=== PATIENT | female | born 1975 | race American Indian/Alaskan Native ===

== ENCOUNTER 2020-08-15 15:53 | Emergency (ER) | payer BC ==
--- NOTE | 2020-08-15 19:19 | Event Note ---
ED Screening Note Date of service: 08/15/20 Time: 19:17 ED Screening Note: 45-year-old female with a past medical history of hypertension and anemia presents to the ER today with complaints of pain in her left neck, left upper back, left shoulder that radiates into her left chest intermittently and down into the left forearm and hands. She reports numbness from her left forearm down into her middle and index finger. She states her symptoms started about a week ago. She went to urgent care and she was prescribed 600 mg Motrin without relief. 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 This initial assessment/diagnostic orders/clinical plan/treatment(s) is/are subject to change based on patients health status, clinical progression and re- assessment by fellow clinical providers in the ED. Further treatment and workup at subsequent clinical providers discretion. Patient/guardian urged not to elope from the ED as their condition may be serious if not clinically assessed and managed. Initial orders include: Labs/EKG/x-ray
[2020-08-15 20:10] LABS: Basophils % (Auto) 0.7 % (0.0-1.8); Eosinophils # (Auto) 0.1 K/mm3 (0.0-0.4); Eosinophils % (Auto) 2.1 % (0.0-4.3); Hematocrit 36.3 % (30.3-42.9); Hemoglobin 11.6 gm/dl (10.1-14.3); Lymphocytes # (Auto) 2.8 K/mm3 (1.2-5.4); Lymphocytes % (Auto) 41.7 % (13.4-35.0); Mean Corpuscular HGB Conc 32 % (30-34); Mean Corpuscular Volume 75 fl (79-97); Monocytes # (Auto) 0.7 K/mm3 (0.0-0.8); Monocytes % (Auto) 9.9 % (0.0-7.3); Platelet Count 297 K/mm3 (140-440); Red Blood Count 4.85 M/mm3 (3.65-5.03); Red Cell Distribution Width 14.8 % (13.2-15.2)
[2020-08-15 20:24] LABS: Alanine Aminotransferase 13 units/L (7-56); Albumin 4.1 g/dL (3.9-5); Blood Urea Nitrogen 10 mg/dL (7-17); Hemolysis Index 39
[2020-08-15 20:35] LABS: BUN/Creatinine Ratio 14
--- NOTE | 2020-08-15 20:43 | XRay Report ---
CERVICAL SPINE 4 VIEWS INDICATION / CLINICAL INFORMATION: radiculopathy. COMPARISON: None available. FINDINGS: Minimal spondylosis from C4 to C7. No fracture, subluxation or other significant abnormality. Signer Name: Aramis Govea MD Signed: 08/15/2020 8:38 PM Workstation Name: [id number]
[2020-08-15] MEDS ORDERED: KETOROLAC 60 MG/2 ML INJ IM ONE (20:49)
[2020-08-15] MEDS ORDERED: dexAMETHasone 20 MG/5 ML VIAL IM ONE (20:49)
--- NOTE | 2020-08-15 21:08 | Emergency Department Report ---
ED General Adult HPI - General Chief complaint: Extremity Problem,Nontraumatic Stated complaint: LT ARM NUMBNESS/SHOULDER/BACK PAIN Time Seen by Provider: 08/15/20 19:10 Source: patient Mode of arrival: Ambulatory Limitations: No Limitations - History of Present Illness Initial comments: Patient is a 45-year-old female presents emergency room with complaints of left- sided neck pain, left shoulder pain, left upper back pain that began over a week ago. She states that she went to a clinic on 08/11/2020 and was given ibuprofen and muscle relaxers but states that she has not had much relief. She states that she also feels numbness and tingling present in her left forearm and left index finger and middle finger. She has no numbness in her upper arm or the other digits. She has no weakness and is able to move the arm. She denies any fall or injury. She denies any headache, vision changes, nausea, vomiting, diarrhea, speech disturbance, gait disturbance. Past medical history of hypertension and anemia. No allergies to medications. She endorses occasional alcohol use. She states she is a non-smoker. She denies any history of diabetes. 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 Severity scale (0 -10): 10 - Related Data Previous Rx's Medication Instructions Recorded Last Taken Type Menthol/Camphor [[place] 1 applicatio TP BID #18 oint...g. 08/15/20 Unknown Rx Ointment] traMADoL [Ultram 50 MG tab] 50 mg PO Q8HR PRN #10 tablet 08/15/20 Unknown Rx Allergies Allergy/AdvReac Type Severity Reaction Status Date / Time No Known Allergies Allergy Unverified 08/15/20 16:00 ED Review of Systems ROS: Stated complaint: LT ARM NUMBNESS/SHOULDER/BACK PAIN Other details as noted in HPI Comment: All other systems reviewed and negative ED Past Medical Hx - Past Medical History Hx Hypertension: Yes - Surgical History Past Surgical History?: No - Social History Smoking Status: Never Smoker Substance Use Type: None - Medications Home Medications: Home Medications Medication Instructions Recorded Confirmed Last Taken Type Menthol/Camphor [[place] 1 applicatio TP BID #18 oint...g. 08/15/20 Unknown Rx Ointment] traMADoL [Ultram 50 MG tab] 50 mg PO Q8HR PRN #10 tablet 08/15/20 Unknown Rx ED Physical Exam - General Limitations: No Limitations General appearance: alert, in no apparent distress - Head Head exam: Present: atraumatic, normocephalic - Eye Eye exam: Present: normal appearance - ENT ENT exam: Present: mucous membranes moist - Neck Neck exam: Present: normal inspection, tenderness (left sided C-spine paraspinal muscular ttp, no midline C-spine ttp, no step offs, no deformities), full ROM - Respiratory Respiratory exam: Present: normal lung sounds bilaterally. Absent: respiratory distress, wheezes, rales, rhonchi, stridor, chest wall tenderness, accessory muscle use, decreased breath sounds, prolonged expiratory - Cardiovascular Cardiovascular Exam: Present: regular rate, normal rhythm, normal heart sounds. Absent: systolic murmur, diastolic murmur, rubs, gallop - Extremities Exam Extremities exam: Present: other (ttp to the left trapezius region, no bony ttp of the LUE, no deformity, no clavicular ttp, clavicles are equal, FROM of the LUE, neurovascularly intact) - Neurological Exam Neurological exam: Present: alert, oriented X3, CN II-XII intact, normal gait, other (mild decreased sensation to the left 2nd and 3rd digits, 5/5 muscle strength in the BUE/BLE) - Psychiatric Psychiatric exam: Present: normal affect, normal mood - Skin Skin exam: Present: warm, dry, intact ED Course Vital Signs 08/15/20 08/15/20 08/15/20 16:02 20:52 21:20 Temperature 98.6 F 98.4 F Pulse Rate 73 67 Respiratory 18 16 18 Rate Blood Pressure 154/86 169/97 [Right] O2 Sat by Pulse 100 99 Oximetry ED Medical Decision Making - Lab Data Result diagrams: 08/15/20 19:42 08/15/20 19:42 Lab Results 08/15/20 08/15/20 Range/Units 19:42 19:42 WBC 6.8 (4.5-11.0) K/mm3 RBC 4.85 (3.65-5.03) M/mm3 Hgb 11.6 (10.1-14.3) gm/dl Hct 36.3 (30.3-42.9) % MCV 75 L (79-97) fl MCH 24 L (28-32) pg MCHC 32 (30-34) % RDW 14.8 (13.2-15.2) % Plt Count 297 (140-440) K/mm3 Lymph % (Auto) 41.7 H (13.4-35.0) % [place] % (Auto) 9.9 H (0.0-7.3) % Eos % (Auto) 2.1 (0.0-4.3) % Baso % (Auto) 0.7 (0.0-1.8) % Lymph # (Auto) 2.8 (1.2-5.4) K/mm3 [place] # (Auto) 0.7 (0.0-0.8) K/mm3 Eos # (Auto) 0.1 (0.0-0.4) K/mm3 Baso # (Auto) 0.0 (0.0-0.1) K/mm3 Seg Neutrophils % 45.6 (40.0-70.0) % Seg Neutrophils # 3.1 (1.8-7.7) K/mm3 Sodium 138 (137-145) mmol/L Potassium 3.2 L (3.6-5.0) mmol/L Chloride 101.3 (98-107) mmol/L Carbon Dioxide 27 (22-30) mmol/L Anion Gap 13 mmol/L BUN 10 (7-17) mg/dL Creatinine 0.7 (0.6-1.2) mg/dL Estimated GFR > 60 ml/min BUN/Creatinine Ratio 14 % Glucose 90 (65-100) mg/dL Calcium 9.0 (8.4-10.2) mg/dL Magnesium 2.00 (1.7-2.3) mg/dL Total Bilirubin 0.30 (0.1-1.2) mg/dL AST 19 (5-40) units/L ALT 13 (7-56) units/L Alkaline Phosphatase 65 (35-129) units/L Troponin T < 0.010 (0.00-0.029) ng/mL Total Protein 7.8 (6.3-8.2) g/dL Albumin 4.1 (3.9-5) g/dL Albumin/Globulin Ratio 1.1 % - EKG Data EKG shows normal: sinus rhythm, axis, intervals, QRS complexes, ST-T waves Rate: normal - Radiology Data Radiology results: report reviewed Ordering Physician: ALICE PRICE Date of Service: 08/15/20 Procedure(s): XR spine cervical 2-3V Accession Number(s): [id number] cc: ALICE PRICE Fluoro Time In Minutes: CERVICAL SPINE 4 VIEWS INDICATION / CLINICAL INFORMATION: radiculopathy. COMPARISON: None available. FINDINGS: Minimal spondylosis from C4 to C7. No fracture, subluxation or other significant abnormality. Signer Name: Aramis Govea MD Signed: 08/15/2020 8:38 PM Workstation Name: [id number] Transcribed By: TM Dictated By: Aramis Govea MD Electronically Authenticated By: Aramis Govea MD Signed Date/Time: 08/15/202037 DD/ 36 TD/TT: - Medical Decision Making Patient is a 45-year-old female presents emergency room with complaints of left- sided neck pain, left shoulder pain, left upper back pain that began over a week ago. She states that she went to a clinic on 08/11/2020 and was given ibuprofen and muscle relaxers but states that she has not had much relief. She states that she also feels numbness and tingling present in her left forearm and left index finger and middle finger. She has no numbness in her upper arm or the other digits. She has no weakness and is able to move the arm. She denies any fall or injury. She denies any headache, vision changes, nausea, vomiting, diarrhea, speech disturbance, gait disturbance. Past medical history of hyper tension and anemia. No allergies to medications. She endorses occasional alcohol use. She states she is a non-smoker. She denies any history of diabetes. 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 Vitals are stable. On exam:left sided C-spine paraspinal muscular ttp, no midline C-spine ttp, no step offs, no deformities, ttp to the left trapezius region, no bony ttp of the LUE, no deformity, no clavicular ttp, clavicles are equal, FROM of the LUE, neurovascularly intact, mild decreased sensation to the left 2nd and 3rd digits, 5/5 muscle strength in the BUE/BLE. Orders placed prior to my examination. EKG was within normal limits. Labs with mild hypokalemia, encouraged to increase oral potassium intake. X-ray cervical spine: Minimal spondylosis from C4 to C7. No fracture, subluxation or other significant abnormality. Symptoms and examination appear most consistent with cervical radiculopathy. Patient could also be having carpal tunnel as she gets decreased sensation in the index and middle finger. Patient given Toradol and dexamethasone IM and symptoms improved. Patient be referred to primary care and neurosurgery. Advised patient Please use medication as prescribed. Do not drive or operate machinery while taking severe pain medication tramadol. Please continue taking medication that you are describing during your last clinic visit. May use ice pack, rest, and salt bath. Follow-up with a primary care doctor. Follow-up with a neurosurgery specialist. Return to emergency room for new or worsening symptoms. Critical care attestation.: If time is entered above; I have spent that time in minutes in the direct care of this critically ill patient, excluding procedure time. ED Disposition Clinical Impression: Cervical radiculopathy, Spondylosis, Paresthesia of arm Disposition: DC- TO HOME OR SELFCARE Is pt being admited?: No Does the pt Need Aspirin: No Condition: Stable Instructions: Cervical Radiculopathy, Carpal Tunnel Syndrome, [id number] Additional Instructions: Please use medication as prescribed. Do not drive or operate machinery while taking severe pain medication tramadol. Please continue taking medication that you are describing during your last clinic visit. May use ice pack, rest, and salt bath. Follow-up with a primary care doctor. Follow-up with a neurosurgery specialist. Return to emergency room for new or worsening symptoms. Prescriptions: Menthol/Camphor [[place] Ointment] 1 applicatio TP BID #18 oint...g. traMADoL [Ultram 50 MG tab] 50 mg PO Q8HR PRN #10 tablet PRN Reason: Pain , Severe (7-10) Referrals: PRIMARY CARE, [Primary Care Provider] - 2-3 Days ZACHARIAH RHOADES II, MD [Staff Physician] - 2-3 Days Time of Disposition: 21:07 Print Language: SAUDI ARABIAN
[2020-08-15 23:07] VITALS: BP 169/97
--- NOTE | 2020-08-18 12:50 | Electrocardiograph Report ---
[facility] Test Date: 2020-08-15 Test Time: 19:23:54 Pat Name: GADIEL KELLY Department: Room: Gender: F Stable Manager: MARK : 1975 Requested By: ALICE PRICE Order Number: [id number] Reading MD: Jamel Allan Measurements Intervals Kerrick Rate: 63 P: 26 AR: 156 QRS: 57 QRSD: 99 T: 28 QT: 434 QTc: 445 Interpretive Statements Sinus rhythm No previous ECG available for comparison Electronically Signed On 08-18-2020 12:50:06 EDT by Jamel Allan
== END 2020-08-15 21:28 | disposition home or self-care (01) ==
LOC: ED 15:53
DX: M54.12 Radiculopathy, cervical region (principal); R20.2 Paresthesia of skin; I10 Essential (primary) hypertension; Z79.899 Other long term (current) drug therapy
CPT/HCPCS: 36415; 72040; 80053; 83735; 84484; 85025; 93005; 96372; 99283; J1100; J1885

== ENCOUNTER 2020-09-10 14:13 | Outpatient (CLI) | payer BC ==
--- NOTE | 2020-09-10 16:10 | Magnetic Resonance Report ---
MRI CERVICAL SPINE 09/10/2020 INDICATION / CLINICAL INFORMATION: MAIN. Neck pain. Left upper extremity symptoms. COMPARISON: None available. FINDINGS: GENERAL OBSERVATIONS: Unenhanced MR images of the cervical spine were obtained. There is no evidence of acute abnormality. Straightening of cervical lordosis is present with the pat ient positioned for this exam. There is no evidence of spinal cord compression or intrinsic spinal cord abnormality.. [id number] ANALYSIS: C7-T1: Unremarkable. C6-7: Moderate diffuse disc bulging and broad-based disc protrusion, more pronounced to the left. Mod erate central canal narrowing and left lateral recess and foraminal encroachment is present. C5-6: Moderate diffuse disc bulging, slightly more pronounced on the left. Moderate central canal jovani rowing and mild left-sided foraminal narrowing. C4-5: Mild diffuse disc bulging with moderate central midline disc protrusion. There is no evidence o f lateralization. C3-4: Minimal diffuse disc bulging and small central disc protrusion. C2-3: Unremarkable. CRANIO-CERVICAL JUNCTION: Unremarkable. BONE MARROW: No significant abnormality. PARASPINAL SOFT TISSUES: No significant abnormality. IMPRESSION: Multilevel degenerative changes as described above. Left lateralization at C6-7 and to lesser degree at C5-6. Signer Name: Angel Pelaez MD Signed: 09/10/2020 4:06 PM Workstation Name: [id number]
== END 2020-09-10 14:14 | disposition home or self-care (01) ==
LOC: MRI 14:13
PROVIDERS: ATTEND Psychiatry & Neurology Neurology
DX: M50.123 Cervical disc disorder at C6-C7 level with radiculopathy (principal); M48.02 Spinal stenosis, cervical region; M50.122 Cervical disc disorder at C5-C6 level with radiculopathy; M50.121 Cervical disc disorder at C4-C5 level with radiculopathy; M47.812 Spondylosis without myelopathy or radiculopathy, cervical region
CPT/HCPCS: 72141